=== PATIENT | male | born 1995 | race Hispanic/Latino ===

== ENCOUNTER 2021-01-16 11:25 | Emergency (ER) | payer SELFPAY ==
[2021-01-16 13:40] LABS: SARS-COV-2 RT PCR NEGATIVE (NEGATIVE)
--- NOTE | 2021-01-16 13:43 | EDPHYS ---
Physician Documentation [facility] Name: Kevin Krause Age: 25 yrs Sex: Male : 1995 Arrival Date: 01/16/2021 Time: 11:36 Bed Waiting Private MD: ED Physician Cheikh Alvarez HPI: 01/16 17:53 This 25 yrs old Male presents to ER via Ambulatory with complaints of Sore kb Throat, Headache. 17:53 The patient presents with sore throat. The patient describes throat pain as constant. kb The patient has not experienced similar symptoms in the past. 17:57 Onset: The symptoms/episode began/occurred yesterday. Severity of symptoms: At their kb worst the symptoms were mild, in the emergency department the symptoms are unchanged. Modifying factors: The symptoms are alleviated by nothing, the symptoms are aggravated by swallowing. Associated signs and symptoms: Pertinent positives: headache, Sore throat. The patient has not recently seen a physician. Pt reports sore throat and headache since yesterday. Wants covid test. Historical: - Allergies: 14:03 No Known Allergies; tw2 - Home Meds: 14:03 None [Active]; tw2 - PMHx: 14:03 None; tw2 - PSHx: 14:03 None; tw2 - Immunization history:: Adult Immunizations up to date. - Social history:: Smoking status: Patient denies any tobacco usage or history of. ROS: 17:52 Constitutional: Negative for fever, chills, and weight loss. kb 17:52 ENT: Positive for sore throat. 17:52 Neuro: Positive for headache. 17:52 All other systems are negative. Exam: 17:53 Constitutional: This is a well developed, well nourished patient who is awake, alert, kb and in no acute distress. Head/Face: Normocephalic, atraumatic. ENT: Moist Mucous membranes Cardiovascular: Regular rate and rhythm with a normal S1 and S2. No gallops, murmurs, or rubs. No pulse deficits. Respiratory: Respirations even and unlabored. No increased work of breathing, no retractions or nasal flaring. Abdomen/GI: Soft, non-tender. No distention Skin: Warm, dry with normal turgor. Normal color. MS/ Extremity: Pulses equal, no cyanosis. Neurovascular intact. Full, normal range of motion. Neuro: Awake and alert, GCS 15, oriented to person, place, time, and situation. Moves all extremities. Normal gait. Psych: Awake, alert, with orientation to person, place and time. Behavior, mood, and affect are within normal limits. Vital Signs: 10:52 BP 125 / 78; Pulse 82; Resp 18; Temp 97.8(TE); Pulse Ox 100% on R/A; tw2 MDM: 11:51 Patient medically screened. kb 17:51 Data reviewed: vital signs, nurses notes. Data interpreted: Pulse oximetry: on room air kb is 100 %. Interpretation: normal. Counseling: I had a detailed discussion with the patient and/or guardian regarding: the historical points, exam findings, and any diagnostic results supporting the discharge/admit diagnosis, lab results, the need for outpatient follow up, a family practitioner, to return to the emergency department if symptoms worsen or persist or if there are any questions or concerns that arise at home. 01/16 11:51 Order name: Flu kb 01/16 11:51 Order name: Strep; Complete Time: 13:58 kb 01/16 13:40 Order name: COVID-19/FLU A+B; Complete Time: 13:42 EDMS 01/16 13:57 Order name: Throat Culture EDAK Administered Medications: No medications were administered Disposition: 01/17 04:45 Co-signature as Attending Physician, Cheikh Alvarez MD I agree with the assessment and kdr plan of care. Disposition Summary: 01/16/21 13:43 Discharge Ordered Location: Home kb Condition: Stable kb Diagnosis - Pain in throat kb Followup: kb - With: Emergency Department - When: As needed - Reason: Worsening of condition Followup: kb - With: Private Physician - When: 2 - 3 days - Reason: Recheck today's complaints, Continuance of care, Re-evaluation by your physician Discharge Instructions: - Discharge Summary Sheet kb - Sore Throat, Lasp-sm-Lsoi kb Forms: - Medication Reconciliation Form kb - Thank You Letter kb - Antibiotic Education kb - Prescription Opioid Use kb - Work release form tw2 Signatures: Dispatcher [employer] EDAK Winifred Conde, SOFTWARE DEVELOPER INTERN-C ROSE MARIE-Ckb Rittger, Cheikh, MD MD kdr Traylor, Makayla, RN RN tw2 Corrections: (The following items were deleted from the chart) 01/16 12:52 11:51 Influenza Screen (A ordered. EDMS EDMS 12:53 11:51 CORONAVIRUS+MR.LAB.BRZ ordered. EDAK EDMS 17:57 17:52 ENT: Positive for sinus congestion, sore throat, kb kb 17:57 17:53 ENT: Posterior pharynx: erythema, that is mild, kb kb 17:57 17:53 The patient has not recently seen a physician, kb kb 17:57 17:53 Onset: The symptoms/episode began/occurred yesterday, kb kb 17:57 17:53 Severity of symptoms: At their worst the symptoms were mild, moderate, in the emergency department the symptoms are unchanged, 17:57 17:53 Modifying factors: The symptoms are alleviated by nothing, the symptoms are kb aggravated by swallowing, Patient's oral intake status: good unaware of sick contact. 17:57 17:53 Associated signs and symptoms: Pertinent positives: cough, kb kb 17:58 17:52 ENT: Positive for sinus congestion, sore throat, kb kb
--- NOTE | 2021-01-16 13:43 | ER ---
Nurse's Notes [facility] Name: Kevin Krause Age: 25 yrs Sex: Male : 1995 Arrival Date: 01/16/2021 Time: 11:36 Bed Waiting Private MD: Diagnosis: Pain in throat Presentation: 01/16 11:50 Chief complaint: Patient states: headache and congestion since yesterday. Coronavirus tw2 screen: congestion, headache, Client presents with at least one sign or symptom that may indicate coronavirus-19. Standard/surgical mask placed on the client. Provider contacted for isolation considerations. Ebola Screen: Patient denies travel to an Ebola-affected area in the 21 days before illness onset. Initial Sepsis Screen: Does the patient meet any 2 criteria? No. Patient's initial sepsis screen is negative. Does the patient have a suspected source of infection? No. Patient's initial sepsis screen is negative. Risk Assessment: Do you want to hurt yourself or someone else? Patient reports no desire to harm self or others. Onset of symptoms was January 16, 2021. 11:50 Method Of Arrival: Ambulatory tw2 11:50 Acuity: RAMAN 4 tw2 Triage Assessment: 11:52 General: Appears in no apparent distress. slender, well groomed, Behavior is calm, tw2 cooperative, appropriate for age. Pain: Denies pain. EENT: Reports nasal congestion nasal discharge. Historical: - Allergies: 14:03 No Known Allergies; tw2 - Home Meds: 14:03 None [Active]; tw2 - PMHx: 14:03 None; tw2 - PSHx: 14:03 None; tw2 - Immunization history:: Adult Immunizations up to date. - Social history:: Smoking status: Patient denies any tobacco usage or history of. Screenin:55 Abuse screen: Denies threats or abuse. Nutritional screening: No deficits noted. tw2 Tuberculosis screening: No symptoms or risk factors identified. Fall Risk None identified. Assessment: 10:52 Reassessment: swabs sent to lab at this time. tw2 10:52 EENT: Throat is reddened. tw2 14:04 General: Appears in no apparent distress. Behavior is calm, cooperative, appropriate tw2 for age. Respiratory: Airway is patent Respiratory effort is even, unlabored, Vital Signs: 10:52 BP 125 / 78; Pulse 82; Resp 18; Temp 97.8(TE); Pulse Ox 100% on R/A; tw2 ED Course: 11:36 Patient arrived in ED. am2 11:47 Winifred Conde FNP-C is [facility]. kb 11:47 Cheikh Alvarez MD is Attending Physician. kb 11:51 Triage completed. tw2 11:51 Arm band placed on. tw2 14:03 Makayla Traylor, ZION is Primary Nurse. tw2 14:04 No provider procedures requiring assistance completed. Patient did not have IV access tw2 during this emergency room visit. 14:12 n/a. tw2 Administered Medications: No medications were administered Outcome: 13:43 Discharge ordered by . kb 14:04 Patient left the ED. tw2 14:04 Discharged to home ambulatory. tw2 14:04 Condition: stable 14:04 Discharge instructions given to patient, Instructed on discharge instructions, follow up and referral plans. Demonstrated understanding of instructions, follow-up care. Signatures: Winifred Conde FNP-C SCHOOL JANITOR-Ckb Makayla Traylor, RN RN tw2 Leni Pop am2 Corrections: (The following items were deleted from the chart) 12:22 12:22 BP 125 / 78; Pulse 82bpm; Resp 18bpm; Pulse Ox 100% RA; Temp 97.8F Temporal; tw2 tw2 12:23 12:22 Reassessment: swabs sent to lab at this time tw2 tw2 14:13 14:13 No provider procedures requiring assistance completed. tw2 tw2 14:13 14:13 Patient did not have IV access during this emergency room visit. tw2 tw2 14:13 14:13 No provider procedures requiring assistance completed. tw2 tw2
== END 2021-01-16 14:04 | disposition home or self-care (01) ==
LOC: ER 11:25
DX: R07.0 Pain in throat (principal); R51.9 Headache, unspecified; Z20.822 Contact with and (suspected) exposure to COVID-19
CPT/HCPCS: 0240U; 87070; 87081; 99281

== ENCOUNTER 2021-08-02 08:20 | Emergency (ER) | payer SELFPAY ==
[2021-08-02] MEDS ORDERED: LIDOCAINE VISCOUS 2% SOLN 15 ML UDC ONE (08:42)
--- NOTE | 2021-08-02 08:58 | EDPHYS ---
Physician Documentation [facility] Name: Kevin Krause Age: 26 yrs Sex: Male : 1995 Arrival Date: 08/02/2021 Time: 08:24 Bed 15 Private MD: ED Physician Jj Zuleta HPI: 08/02 08:43 This 26 yrs old Male presents to ER via Unassigned with complaints of Ear Pain.socrates 08:43 This 26 yrs old Male presents to ER via Ambulatory with complaints of Ear Pain.socrates 08:43 The patient presents with a foreign body sensation, presumably from an insect. The socrates complaints affect the right ear. Onset: The symptoms/episode began/occurred just prior to arrival. Modifying factors: The symptoms are alleviated by nothing, the symptoms are aggravated by nothing. Associated signs and symptoms: The patient has no apparent associated signs or symptoms. Severity of symptoms: At their worst the symptoms were mild in the emergency department the symptoms are unchanged. The patient has not experienced similar symptoms in the past. Historical: - Allergies: 08:43 No Known Allergies; iw - Home Meds: 08:43 None [Active]; iw - PMHx: 08:43 None; iw - PSHx: 08:43 None; iw - Immunization history:: Adult Immunizations unknown. - Social history:: Smoking status: . ROS: 08:44 Constitutional: Negative for fever, chills, and weight loss, Eyes: Negative for injury, socrates pain, redness, and discharge, Neck: Negative for injury, pain, and swelling, Cardiovascular: Negative for chest pain, palpitations, and edema, Respiratory: Negative for shortness of breath, cough, wheezing, and pleuritic chest pain, Abdomen/GI: Negative for abdominal pain, nausea, vomiting, diarrhea, and constipation, Back: Negative for injury and pain, : Negative for injury, bleeding, discharge, and swelling, MS/Extremity: Negative for injury and deformity, Skin: Negative for injury, rash, and discoloration, Neuro: Negative for headache, weakness, numbness, tingling, and seizure, Psych: Negative for depression, anxiety, suicide ideation, homicidal ideation, and hallucinations, Allergy/Immunology: Negative for hives, rash, and allergies, Endocrine: Negative for neck swelling, polydipsia, polyuria, polyphagia, and marked weight changes, Hematologic/Lymphatic: Negative for swollen nodes, abnormal bleeding, and unusual bruising. 08:44 ENT: Positive for drainage from ear(s), foreign body sensation. Exam: 08:44 Constitutional: This is a well developed, well nourished patient who is awake, alert, socrates and in no acute distress. Head/Face: Normocephalic, atraumatic. Eyes: Pupils equal round and reactive to light, extra-ocular motions intact. Lids and lashes normal. Conjunctiva and sclera are non-icteric and not injected. Cornea within normal limits. Periorbital areas with no swelling, redness, or edema. Neck: Trachea midline, no thyromegaly or masses palpated, and no cervical lymphadenopathy. Supple, full range of motion without nuchal rigidity, or vertebral point tenderness. No Meningismus. Chest/axilla: Normal chest wall appearance and motion. Nontender with no deformity. No lesions are appreciated. Cardiovascular: Regular rate and rhythm with a normal S1 and S2. No gallops, murmurs, or rubs. Normal PMI, no JVD. No pulse deficits. Respiratory: Lungs have equal breath sounds bilaterally, clear to auscultation and percussion. No rales, rhonchi or wheezes noted. No increased work of breathing, no retractions or nasal flaring. Abdomen/GI: Soft, non-tender, with normal bowel sounds. No distension or tympany. No guarding or rebound. No evidence of tenderness throughout. Back: No spinal tenderness. No costovertebral tenderness. Full range of motion. Male : Normal genitalia with no discharge or lesions. Skin: Warm, dry with normal turgor. Normal color with no rashes, no lesions, and no evidence of cellulitis. MS/ Extremity: Pulses equal, no cyanosis. Neurovascular intact. Full, normal range of motion. Neuro: Awake and alert, GCS 15, oriented to person, place, time, and situation. Cranial nerves II-XII grossly intact. Motor strength 5/5 in all extremities. Sensory grossly intact. Cerebellar exam normal. Normal gait. Psych: Awake, alert, with orientation to person, place and time. Behavior, mood, and affect are within normal limits. 08:44 ENT: Ear canal(s): foreign body, an insect, in the right external ear canal. Vital Signs: 08:35 BP 121 / 88; Pulse 91; Resp 16; Temp 98.0; Pulse Ox 98% on R/A; iw 09:00 BP 117 / 79; Pulse 81; Resp 17; Temp 98.5; Pulse Ox 99% ; bp Procedures: 08:44 Foreign Body Removal: an insect, from the right ear canal, by lidocaine lavage, normal socrates saline irrigation, The patient tolerated the removal well. MDM: 08:33 Patient medically screened. socrates 08:44 Differential diagnosis: foreign body. Data reviewed: vital signs, nurses notes. Data socrates interpreted: film spooler: not applicable for this patient encounter. rate is 91 beats/min, rhythm is regular, Pulse oximetry: on room air is 91 %. Test interpretation: by ED physician or midlevel provider:. Counseling: I had a detailed discussion with the patient and/or guardian regarding: the historical points, exam findings, and any diagnostic results supporting the discharge/admit diagnosis, the need for outpatient follow up, for definitive care, an ENT specialist, a family practitioner. Administered Medications: No medications were administered Disposition Summary: 08/02/21 08:57 Discharge Ordered Location: Home socrates Problem: new socrates Symptoms: have improved socrates Condition: Stable socrates Diagnosis - Foreign body in right ear socrates Followup: socrates - With: Private Physician - When: 2 - 3 days - Reason: Recheck today's complaints, Continuance of care, Re-evaluation by your physician Followup: socrates - With: Regina Ziegler MD - When: 2 - 3 days - Reason: Recheck today's complaints, Re-evaluation by your physician Discharge Instructions: - Discharge Summary Sheet socrates - Ear Foreign Body socrates - Ear Foreign Body, [id number] socrates - Ear Irrigation socrates Forms: - Medication Reconciliation Form socrates - Thank You Letter socrates - Antibiotic Education socrates - Prescription Opioid Use socrates Signatures: Jj Zuleta MD MD cha Williams, Irene, RN RN iw Bryan Nesbitt RN RN bp
--- NOTE | 2021-08-02 08:58 | ER ---
Nurse's Notes [facility] Name: Kevin Krause Age: 26 yrs Sex: Male : 1995 Arrival Date: 08/02/2021 Time: 08:24 Bed 15 Private MD: Diagnosis: Foreign body in right ear Presentation: 08/02 08:35 Chief complaint: Patient states: thinks there is a big or something stuck in his right iw ear. Coronavirus screen: At this time, the client does not indicate any symptoms associated with coronavirus-19. Ebola Screen: Patient negative for fever greater than or equal to 101.5 degrees Fahrenheit, and additional compatible Ebola Virus Disease symptoms Patient denies exposure to infectious person. Patient denies travel to an Ebola-affected area in the 21 days before illness onset. No symptoms or risks identified at this time. Initial Sepsis Screen: Does the patient meet any 2 criteria? No. Patient's initial sepsis screen is negative. Does the patient have a suspected source of infection? No. Patient's initial sepsis screen is negative. Risk Assessment: Do you want to hurt yourself or someone else? Patient reports no desire to harm self or others. Onset of symptoms was August 02, 2021. 08:35 Method Of Arrival: Ambulatory iw 08:35 Acuity: RAMAN 4 iw Triage Assessment: 08:45 General: Appears in no apparent distress. uncomfortable, Behavior is cooperative, bp appropriate for age, anxious. Pain: Complains of pain in right ear. EENT: Reports INSECT IN R EAR. Neuro: No deficits noted. Cardiovascular: No deficits noted. Respiratory: No deficits noted. GI: No signs and/or symptoms were reported involving the gastrointestinal system. : No signs and/or symptoms were reported regarding the genitourinary system. Derm: No deficits noted. Musculoskeletal: No deficits noted. Historical: - Allergies: 08:43 No Known Allergies; iw - Home Meds: 08:43 None [Active]; iw - PMHx: 08:43 None; iw - PSHx: 08:43 None; iw - Immunization history:: Adult Immunizations unknown. - Social history:: Smoking status: . Screenin:15 Abuse screen: Denies threats or abuse. Denies injuries from another. Nutritional bp screening: No deficits noted. Tuberculosis screening: No symptoms or risk factors identified. Fall Risk None identified. Assessment: 08:45 General: SEE TRIAGE NOTE. bp 09:15 Reassessment: PT D/C HOME AMBULATORY WITH FAMILY, DX WITH R EAR FOREIGN BODY. bp Vital Signs: 08:35 BP 121 / 88; Pulse 91; Resp 16; Temp 98.0; Pulse Ox 98% on R/A; iw 09:00 BP 117 / 79; Pulse 81; Resp 17; Temp 98.5; Pulse Ox 99% ; bp ED Course: 08:24 Patient arrived in ED. rg4 08:29 Jj Zuleta MD is Attending Physician. socrates 08:30 Bryan Nesbitt, RN is Primary Nurse. bp 08:43 Triage completed. iw 08:44 Arm band placed on. iw 08:56 Regina Ziegler MD is Referral Physician. socrates 09:15 Patient has correct armband on for positive identification. Bed in low position. Call bp light in reach. Side rails up X2. 09:15 No provider procedures requiring assistance completed. Patient did not have IV access bp during this emergency room visit. Administered Medications: No medications were administered Outcome: 08:57 Discharge ordered by . socrates 09:15 Discharged to home ambulatory, with family. bp 09:15 Condition: stable 09:15 Discharge instructions given to patient, Instructed on discharge instructions, follow up and referral plans. Demonstrated understanding of instructions, follow-up care. 09:18 Patient left the ED. bp Signatures: Jj Zuleta MD MD cha Williams, Irene, RN Ashleigh Webster rg4 Bryan Nesbitt, ZION RN bp
[2021-08-02 09:33] VITALS: BP 117/79; TEMP 98.5; O2SAT 99
== END 2021-08-02 09:18 | disposition home or self-care (01) ==
LOC: ER 08:20
PROC: 09C3XZZ Extirpation of Matter from Right External Auditory Canal, External Approach (ICD-10-PCS; principal; 2021-08-02)
DX: T16.1XXA Foreign body in right ear, initial encounter (principal)
CPT/HCPCS: 99281